=== PATIENT | female | born 1940 | race Caucasian/White ===

== ENCOUNTER 2020-11-03 10:09 | Emergency (ER) | payer MEDICARE ==
[~2020-11-03] VITALS: Ht 167.6 cm; Wt 79.4 kg
[~2020-11-03 10:09] MED LIST: EVISTA60 MG PO; NORVASC2.5 MG PO; NORVASC5 MG PO; OMEPRAZOLE40 MG PO; OMNICEF 300 MG300 MG PO; PRADAXA150 MG PO; PRILOSEC OTC20 MG PO; PYRIDIUM200 MG PO; SINGULAIR10 MG PO; SYNTHROID50 MCG PO; TOPROL XL 25 MG25 MG PO; VITAMIN D250000 UNIT PO; XANAX0.5 MG PO
[2020-11-03 11:02] LABS: HEMOGLOBIN 14.2 gm/dl (12.3-15.3); RED BLOOD COUNT 4.68 M/UL (4.00-5.10); WHITE BLOOD COUNT 6.8 K/UL (4.5-11.0)
[2020-11-03 11:19] LABS: BUN/CREATININE RATIO 12 (0-10)
[2020-11-03] MEDS ORDERED: NITROGLYCERIN0.4 MG SL (13:44)
[2020-11-03] MEDS ORDERED: AZELASTIN-FLUTI23 GM (13:45)
[2020-11-03] MEDS ORDERED: FML 0.1% OP SUSP5 ML EYEBOTH (13:46)
[2020-11-03] MEDS ORDERED: CARAFATE1 GM/10 ML PO (13:47)
[2020-11-03] MEDS ORDERED: MAGIC MOUTHWASH PO (13:48)
[2020-11-03] MEDS ORDERED: PEPCID20 MG PO (13:49)
[2020-11-03] MEDS ORDERED: VITAMIN D21250 MCG PO (13:52)
[2020-11-03] MEDS ORDERED: NITROSTAT0.4 MG SL (17:22)
[2020-11-03] MEDS ORDERED: ASPIRIN CHEWABL81 MG PO (17:22)
== END 2020-11-03 18:00 | disposition home or self-care (01) ==
LOC: ER1 10:09 → CDU 13:12 → ER1 13:12 → CDU 18:00
PROVIDERS: Emergency Medicine
DX: R07.9 Chest pain, unspecified (principal); I10 Essential (primary) hypertension; I48.91 Unspecified atrial fibrillation; Z88.1 Allergy status to other antibiotic agents; Z88.8 Allergy status to other drugs, medicaments and biological substances; Z20.822 Contact with and (suspected) exposure to COVID-19
CPT/HCPCS: 71045; 80053; 82550; 82553; 83874; 84484; 85025; 85379; 93005; 99285; G0378; Q9967; U0002

== ENCOUNTER → 2021-01-24 | Outpatient (CLI) | payer MEDICARE ==
[~2021-01-24] MED LIST changes: +ASPIRIN CHEWABL81 MG PO; +AZELASTIN-FLUTI23 GM; +CARAFATE1 GM/10 ML PO; +FML 0.1% OP SUSP5 ML EYEBOTH; +MAGIC MOUTHWASH PO; +NITROGLYCERIN0.4 MG SL; +NITROSTAT0.4 MG SL; +PEPCID20 MG PO; +VITAMIN D21250 MCG PO
== END ==
LOC: MAMO 12:02
DX: R92.8 Other abnormal and inconclusive findings on diagnostic imaging of breast (principal); Z90.710 Acquired absence of both cervix and uterus
CPT/HCPCS: 77065

== ENCOUNTER → 2021-07-24 | Outpatient (CLI) | payer MEDICARE | LOC: MAMO 09:24 | DX: R92.8 Other abnormal and inconclusive findings on diagnostic imaging of breast (principal); Z90.710 Acquired absence of both cervix and uterus | CPT/HCPCS: 77066; G0279 ==